=== PATIENT | male | born 1995 | race Caucasian/White ===

== ENCOUNTER 2017-12-09 11:59 | Emergency (ER) | payer OTHER ==
[~2017-12-09] VITALS: Ht 170.2 cm; Wt 65.3 kg
[2017-12-09 12:05] VITALS: TEMP 37.1; Ht 170.2 cm; Wt 65.3 kg
[2017-12-09] MEDS ORDERED: IBUPROFEN 600 MG TAB PO STA (12:17)
--- NOTE | 2017-12-09 13:17 | DIAGNOSTIC IMAGING REPORT ---
TESTICULAR ULTRASOUND CLINICAL HISTORY: Right testicular pain, acute 2 hrs COMPARISON STUDY: No previous studies for comparison. FINDINGS: The right testis measures 4.9 x 2 x 3.2 cm. The left testis measures 5.2 x 2.5 x 3.2 cm. No intratesticular masses are visualized. There is no evidence of testicular torsion. There are tiny bilateral epididymal cysts. There are no ultrasound findings to indicate acute epididymitis. IMPRESSION: 1. No acute findings 2. No evidence of intratesticular mass 3. No evidence of testicular torsion Electronically signed by: Ralph Skaggs M.D. 12/09/2017 1:15 PM Dictated Date/Time: 12/09/2017 1:14 PM
[2017-12-09] MEDS ORDERED: IBUP600T44 PO (13:43)
[2017-12-09 13:52] VITALS: BP 118/58; PULSE 69; O2SAT 100
--- NOTE | 2017-12-09 14:21 | EMERGENCY ROOM VISIT NOTE ---
History Report prepared by Hunter: Swathi Basurto Under the Supervision of: Dr. Bill Calderon M.D. 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 Pt denies any recent trauma, history of STIs. 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 A total of ten systems were reviewed and were otherwise negative. Past Medical & Surgical Medical Problems: (1) No significant past medical history Family History No pertinent family history Social History Smoking Status: Never Smoker Marital Status: single Housing Status: lives with roommate Occupation Status: [employer] student Current/Historical Medications Scheduled PRN Ibuprofen (Motrin), 600 MG PO TID PRN for Pain Physical Exam Vital Signs Date Time Temp Pulse Resp B/P (MAP) Pulse Ox O2 Delivery O2 Flow Rate FiO2 12/09/17 13:52 69 14 118/58 100 12/09/17 12:05 37.1 105 18 132/72 99 Room Air Physical Exam GENERAL: Awake, alert, well-appearing, in no distress HENT: Normocephalic, atraumatic. Oropharynx unremarkable. EYES: Normal conjunctiva. Sclera non-icteric. NECK: Supple. No nuchal rigidity. RESPIRATORY: Clear to auscultation. No wheezes. Normal respiratory effort. CARDIAC: Normal rate. Normal rhythm. Extremities warm and well perfused. GI: Soft, non-distended. No tenderness to palpation. No rebound or guarding. No masses. : Mild to moderate right testicular tenderness. No left testicular tenderness. No lesions, no hernias appreciated. Bilateral cremasteric reflex intact. RECTAL: Deferred. MUSCULOSKELETAL: Atraumatic. Chest examination reveals no tenderness. There is no CVA tenderness to palpation. LOWER EXTREMITIES: Calves are equal size bilaterally and non-tender. No edema NEURO: Normal sensorium. No sensory or motor deficits noted. No facial droop. SKIN: Warm and dry. No rash or jaundice noted. Medical Decision & Procedures ER Provider Diagnostic Interpretation: Radiology results as stated below per my review and radiologist interpretation: TESTICULAR ULTRASOUND CLINICAL HISTORY: Right testicular pain, acute 2 hrs COMPARISON STUDY: No previous studies for comparison. FINDINGS: The right testis measures 4.9 x 2 x 3.2 cm. The left testis measures 5.2 x 2.5 x 3.2 cm. No intratesticular masses are visualized. There is no evidence of testicular torsion. There are tiny bilateral epididymal cysts. There are no ultrasound findings to indicate acute epididymitis. IMPRESSION: 1. No acute findings 2. No evidence of intratesticular mass 3. No evidence of testicular torsion Electronically signed by: Ralph Skaggs M.D. 12/09/2017 1:15 PM Laboratory Results Test 12/09/17 12:38 Urine Color YELLOW Urine Appearance CLEAR (CLEAR) Urine pH 6.0 (4.5-7.5) Urine Specific [place] 1.023 (1.000-1.030) Urine Protein NEG (NEG) Urine Glucose (UA) NEG (NEG) Urine Ketones NEG (NEG) Urine Occult Blood NEG (NEG) Urine Nitrite NEG (NEG) Urine Bilirubin NEG (NEG) Urine Urobilinogen NEG (NEG) Urine Leukocyte Esterase NEG (NEG) Laboratory results reviewed by me Medications Administered Medications (Trade) Dose Ordered Sig/Zeeshan Route Start Time Stop Time Status Last Admin Dose Admin Ibuprofen (Motrin Tab) 600 mg NOW STAT PO 12/09/17 12:17 12/09/17 12:18 DC 12/09/17 12:36 600 MG ED Course 1212: The patient was evaluated in room C7. A complete history and physical exam was performed. 1217: Ordered Ibuprofen 600 mg PO 1338: I reevaluated the patient. Discussed results and discharge instructions: He verbalized understanding and agreement. The patient is ready for discharge. Medical Decision Triage Nursing notes reviewed. Differential diagnosis: Etiologies such as torsion, mass, infection, hernia, hydrocele, epididymitis, trauma, intra-abdominal process, as well as others were entertained. Otherwise healthy gentleman presents with acute onset of right testicular pain approximately 2 hours ago. Denies trauma. Denies STI risk. No lesions. No masses or hernia appreciated. Testicular ultrasound was completed to evaluate for possible torsion although I have lower suspicion for this based on exam. Urinalysis was sent. No evidence of infection on urinalysis and no blood noted. Benign abdomen and doubt referred pain from there or kidney stone. Given Motrin for pain. Ultrasound without evidence of testicular torsion. No acute hydrocele or varicocele noted. No increased flow consistent with epididymitis. Unsure of exact etiology but again doubt torsion or surgical emergency. Recommend he follow-up as an outpatient and discussed return precautions. May use Motrin for pain. Medication Reconcilliation Current Medication List: was personally reviewed by me Blood Pressure Screening Patient's blood pressure: Normal blood pressure Blood pressure disposition: Did not require urgent referral Impression Primary Impression: Right testicular pain Scribe Attestation The scribe's documentation has been prepared under my direction and personally reviewed by me in its entirety. I confirm that the note above accurately reflects all work, treatment, procedures, and medical decision making performed by me. Departure Information Dispostion Home / Self-Care Prescriptions Ibuprofen (Motrin) 600 Mg Tab 600 MG PO TID Y for Pain, #15 TAB With Food Prov: Bill Calderon M.D. 12/09/17 Forms HOME CARE DOCUMENTATION FORM, IMPORTANT VISIT INFORMATION, WORK / SCHOOL INSTRUCTIONS Patient Instructions My [facility] Additional Instructions Please continue to use Motrin as needed for pain. If you experience significant worsening of your pain or new symptoms please return. Otherwise would recommend follow-up within the next 3-5 days with the [facility] service if he continue to have symptoms. If at any time you have significant worsening, other changes, or new symptoms please return here for reevaluation.
== END 2017-12-09 13:55 | disposition home or self-care (01) ==
LOC: C.EDB 12:02 → C.EDC 13:55
DX: N50.811 Right testicular pain (principal)